=== PATIENT | female | born 1990 | race Caucasian/White ===

== ENCOUNTER 2018-11-12 00:23 | Emergency (ER) | payer SELFPAY ==
[~2018-11-12] VITALS: Ht 162.6 cm; Wt 62.2 kg
[~2018-11-12 00:23] MED LIST: AMOXIL500 MG OR; CIPROFLOXACN500 MG PO; LORTAB5 OR; ONDANSETRON4 MG PO; ORTHO TRI-CY PO; SEPTRA DS1 TAB OR; ZOFRAN ODT4 MG OR; ZOFRAN ODT4 MG PO; [UNRECOGNIZED DRUG - REMARK]
[2018-11-12] MEDS ORDERED: PRE-NATAL PO (00:35)
[2018-11-12 01:10] LABS: URINE BLOOD DIPSTICK NEGATIVE (NEGATIVE); URINE COLOR YELLOW; URINE GLUCOSE - DIPSTICK NEGATIVE (NEGATIVE); URINE KETONE >=80 mg/dL (NEGATIVE); URINE LEUK ESTERASE TRACE (Negative); URINE NITRITE - DIPSTICK NEGATIVE (Negative); URINE PROTEIN - DIPSTICK TRACE mg/dL (NEG-TRACE); URINE SPECIFIC GRAVITY >=1.030; URINE UROBILINOGEN - DIPSTICK 0.2 E.U./dL (0.2)
[2018-11-12 01:20] LABS: URINE BILIRUBIN - DIPSTICK NEGATIVE (NEGATIVE); URINE CLARITY TURBID
[2018-11-12 01:30] LABS: URINE BACTERIA FEW hpf; URINE MUCUS MANY hpf (NONE-FEW); URINE SQUAMOUS EPITHELIAL CELL FEW EPI/hpf (0-FEW)
[2018-11-12 03:00] VITALS: BP 126/65
== END 2018-11-12 03:00 | disposition home or self-care (01) | DRG 833 ==
LOC: ED 00:23
PROVIDERS: Emergency Medicine
DX: O21.9 Vomiting of pregnancy, unspecified (principal); Z3A.09 9 weeks gestation of pregnancy; R11.0 Nausea

== ENCOUNTER 2019-10-02 22:56 | Emergency (ER) | payer SELFPAY ==
[~2019-10-02] VITALS: Ht 162.6 cm; Wt 72.0 kg
[~2019-10-02 22:56] MED LIST changes: +PRE-NATAL PO
[2019-10-03 00:38] VITALS: BP 100/69
== END 2019-10-03 00:38 | disposition home or self-care (01) | DRG 395 ==
LOC: ED 22:56
DX: T18.128A Food in esophagus causing other injury, initial encounter (principal)
CPT/HCPCS: J1610

== ENCOUNTER 2020-09-01 23:25 | Emergency (ER) | payer SELFPAY ==
[~2020-09-01] VITALS: Ht 162.6 cm; Wt 62.0 kg
[2020-09-02 00:17] LABS: URINE BLOOD DIPSTICK LARGE (NEGATIVE); URINE COLOR YELLOW; URINE GLUCOSE - DIPSTICK NEGATIVE (NEGATIVE); URINE KETONE TRACE mg/dL (NEGATIVE); URINE NITRITE - DIPSTICK NEGATIVE (Negative); URINE PH 6.5 (4.5-8.0); URINE PROTEIN - DIPSTICK 30 mg/dL (NEG-TRACE); URINE UROBILINOGEN - DIPSTICK 0.2 E.U./dL (0.2)
[2020-09-02 00:32] LABS: URINE BILIRUBIN - DIPSTICK NEGATIVE (NEGATIVE); URINE LEUK ESTERASE SMALL (NEGATIVE)
[2020-09-02] MEDS ORDERED: BACTRIM DS1 TAB PO (00:47)
[2020-09-02 00:48] LABS: URINE RBC TNTC RBC/hpf (0-5)
[2020-09-02 00:49] LABS: URINE BACTERIA FEW hpf; URINE SQUAMOUS EPITHELIAL CELL FEW EPI/hpf (0-FEW)
[2020-09-02 01:07] VITALS: BP 122/72
[2020-09-02] MEDS ORDERED: ONDANSETRON ODT8 MG PO (22:35)
== END 2020-09-02 01:10 | disposition home or self-care (01) | DRG 690 ==
LOC: ED 23:25
PROVIDERS: Family Medicine
DX: N30.00 Acute cystitis without hematuria (principal); R11.0 Nausea

== ENCOUNTER 2020-09-02 22:06 | Emergency (ER) | payer SELFPAY ==
[~2020-09-02] VITALS: Ht 162.6 cm; Wt 62.3 kg
[~2020-09-02 22:06] MED LIST changes: +BACTRIM DS1 TAB PO
[2020-09-02] MEDS ORDERED: ONDANSETRON ODT8 MG PO (22:35)
[2020-09-02 23:16] VITALS: BP 111/77
== END 2020-09-02 23:16 | disposition home or self-care (01) | DRG 392 ==
LOC: ED 22:06
DX: R11.0 Nausea (principal)

== ENCOUNTER 2020-09-05 11:43 | Emergency (ER) | payer SELFPAY ==
[~2020-09-05] VITALS: Ht 162.6 cm; Wt 55.0 kg
[~2020-09-05 11:43] MED LIST changes: +ONDANSETRON ODT8 MG PO
[2020-09-05] MEDS ORDERED: KEFLEX500 M1 PO (12:15)
[2020-09-05 12:36] LABS: HEMATOCRIT 45.5 % (37.0-47.0); HEMOGLOBIN 16.2 g/dl (12.0-16.0); IMMATURE GRANULOCYTES 0.2 % (0.0-5.0); MEAN CELL VOLUME 91.7 fL CALC (80.0-100.0); MEAN CORPUSCULAR HGB 32.7 pG CALC (26.0-32.0); MEAN CORPUSCULAR HGB CONC 35.6 g/dL CAL (32.0-36.0); NEUT# 11.06 thou/uL (2.00-7.15); RED BLOOD COUNT 4.96 mill/uL (4.20-5.60); RED CELL DISTRI WIDTH 11.4 % (11.5-15.5)
[2020-09-05 13:14] LABS: ALBUMIN 4.7 g/dL (3.2-5.0); ALKALINE PHOSPHATASE 57 u/l (38-126); ANION GAP 20 (6-22 (CALC)); BILIRUBIN, TOTAL 1.2 mg/dL (0.0-1.4); BUN 12 mg/dL (7-17); BUN/CREATININE RATIO 15 (12-20 (CALC)); CARBON DIOXIDE 17 mmol/l (22-30); CHLORIDE 103 mmol/l (95-108); CREATININE 0.8 mg/dL (0.5-1.0); GFR > 60 ML/MIN (>=60 (CALC)); GFR FOR AFR.AMER. > 60 ML/MIN (>=60 (CALC)); POTASSIUM 4.1 mmol/l (3.5-5.1); SGOT/AST 27 u/l (14-36); SODIUM 136 mmol/l (137-146); TOTAL PROTEIN 7.9 g/dL (6.3-8.2)
[2020-09-05] MEDS ORDERED: REGLAN10 MG PO (13:52)
[2020-09-05 14:12] LABS: URINE BLOOD DIPSTICK TRACE-INTACT (NEGATIVE); URINE COLOR YELLOW; URINE GLUCOSE - DIPSTICK NEGATIVE (NEGATIVE); URINE KETONE >=80 mg/dL (NEGATIVE); URINE LEUK ESTERASE TRACE (NEGATIVE); URINE NITRITE - DIPSTICK NEGATIVE (Negative); URINE PROTEIN - DIPSTICK TRACE mg/dL (NEG-TRACE); URINE SPECIFIC GRAVITY >=1.030; URINE UROBILINOGEN - DIPSTICK 0.2 E.U./dL (0.2)
[2020-09-05 14:13] LABS: URINE BILIRUBIN - DIPSTICK NEGATIVE (NEGATIVE)
[2020-09-05 14:40] VITALS: BP 122/80
== END 2020-09-05 14:40 | disposition home or self-care (01) | DRG 392 ==
LOC: ED 11:43
DX: R11.2 Nausea with vomiting, unspecified (principal); T36.8X5A Adverse effect of other systemic antibiotics, initial encounter

== ENCOUNTER 2020-11-10 18:04 | Emergency (ER) | payer MEDICAID ==
[~2020-11-10] VITALS: Ht 162.6 cm; Wt 61.8 kg
[~2020-11-10 18:04] MED LIST changes: +KEFLEX500 M1 PO; +REGLAN10 MG PO
[2020-11-10 18:44] LABS: URINE BLOOD DIPSTICK TRACE-LYSED (NEGATIVE); URINE COLOR YELLOW; URINE GLUCOSE - DIPSTICK NEGATIVE (NEGATIVE); URINE KETONE >=80 mg/dL (NEGATIVE); URINE LEUK ESTERASE NEGATIVE (NEGATIVE); URINE NITRITE - DIPSTICK NEGATIVE (Negative); URINE PROTEIN - DIPSTICK TRACE mg/dL (NEG-TRACE); URINE SPECIFIC GRAVITY >=1.030; URINE UROBILINOGEN - DIPSTICK 0.2 E.U./dL (0.2)
[2020-11-10 18:45] LABS: URINE BILIRUBIN - DIPSTICK SMALL (NEGATIVE)
[2020-11-10 19:44] LABS: HEMATOCRIT 43.9 % (37.0-47.0); HEMOGLOBIN 15.1 g/dl (12.0-16.0); IMMATURE GRANULOCYTES 0.3 % (0.0-5.0); MEAN CELL VOLUME 94.2 fL CALC (80.0-100.0); MEAN CORPUSCULAR HGB 32.4 pG CALC (26.0-32.0); MEAN CORPUSCULAR HGB CONC 34.4 g/dL CAL (32.0-36.0); NEUT# 10.07 thou/uL (2.00-7.15); RED BLOOD COUNT 4.66 mill/uL (4.20-5.60); RED CELL DISTRI WIDTH 11.4 % (11.5-15.5)
[2020-11-10 19:48] LABS: ALBUMIN 4.7 g/dL (3.2-5.0); ALKALINE PHOSPHATASE 55 u/l (38-126); ANION GAP 17 (6-22 (CALC)); BUN 13 mg/dL (7-17); BUN/CREATININE RATIO 21 (12-20 (CALC)); CARBON DIOXIDE 19 mmol/l (22-30); CHLORIDE 106 mmol/l (95-108); CREATININE 0.6 mg/dL (0.5-1.0); GFR > 60 ML/MIN (>=60 (CALC)); GFR FOR AFR.AMER. > 60 ML/MIN (>=60 (CALC)); LIPASE 34 u/l (23-300); POTASSIUM 3.9 mmol/l (3.5-5.1); SGOT/AST 19 u/l (14-36); SODIUM 139 mmol/l (137-146)
[2020-11-10 19:50] LABS: BILIRUBIN, TOTAL 0.7 mg/dL (0.0-1.4)
[2020-11-10] MEDS ORDERED: PHENERGAN25 MG RE (20:03)
[2020-11-10 20:13] VITALS: BP 114/70
== END 2020-11-10 20:21 | disposition home or self-care (01) ==
LOC: ED 18:04
PROVIDERS: Family Medicine
DX: R11.2 Nausea with vomiting, unspecified (principal)

== ENCOUNTER 2021-01-14 23:11 | Emergency (ER) | payer MEDICAID ==
[~2021-01-14] VITALS: Ht 162.6 cm; Wt 60.0 kg
[~2021-01-14 23:11] MED LIST changes: +PHENERGAN25 MG RE
[2021-01-15 00:43] LABS: HEMATOCRIT 42.9 % (37.0-47.0); HEMOGLOBIN 14.7 g/dl (12.0-16.0); IMMATURE GRANULOCYTES 0.2 % (0.0-5.0); MEAN CELL VOLUME 93.7 fL CALC (80.0-100.0); MEAN CORPUSCULAR HGB 32.1 pG CALC (26.0-32.0); MEAN CORPUSCULAR HGB CONC 34.3 g/dL CAL (32.0-36.0); NEUT# 11.13 thou/uL (2.00-7.15); RED BLOOD COUNT 4.58 mill/uL (4.20-5.60); RED CELL DISTRI WIDTH 11.2 % (11.5-15.5)
[2021-01-15 00:50] LABS: ALBUMIN 5.2 g/dL (3.2-5.0); ALKALINE PHOSPHATASE 50 u/l (38-126); AMYLASE 109 u/l (30-110); ANION GAP 18 (6-22 (CALC)); BUN 15 mg/dL (7-17); BUN/CREATININE RATIO 23 (12-20 (CALC)); CARBON DIOXIDE 21 mmol/l (22-30); CHLORIDE 105 mmol/l (95-108); CREATININE 0.7 mg/dL (0.5-1.0); GFR > 60 ML/MIN (>=60 (CALC)); GFR FOR AFR.AMER. > 60 ML/MIN (>=60 (CALC)); POTASSIUM 3.8 mmol/l (3.5-5.1); SGOT/AST 23 u/l (14-36); SODIUM 140 mmol/l (137-146); TOTAL PROTEIN 8.4 g/dL (6.3-8.2)
[2021-01-15 00:52] LABS: BILIRUBIN, TOTAL 1.3 mg/dL (0.0-1.4)
[2021-01-15 02:03] LABS: URINE BLOOD DIPSTICK LARGE (NEGATIVE); URINE COLOR YELLOW; URINE GLUCOSE - DIPSTICK NEGATIVE (NEGATIVE); URINE KETONE >=80 mg/dL (NEGATIVE); URINE LEUK ESTERASE NEGATIVE (NEGATIVE); URINE PROTEIN - DIPSTICK 30 mg/dL (NEG-TRACE); URINE SPECIFIC GRAVITY 1.025
[2021-01-15 02:06] LABS: URINE BILIRUBIN - DIPSTICK SMALL (NEGATIVE)
[2021-01-15 02:07] LABS: URINE NITRITE - DIPSTICK NEGATIVE (Negative)
[2021-01-15 02:12] LABS: URINE BACTERIA MODERATE hpf; URINE EPITHELIAL CELLS MANY EPI/hpf (0-FEW)
[2021-01-15] MEDS ORDERED: PHENERGAN25 MG/TAB PO (02:22)
[2021-01-15 02:28] VITALS: BP 118/86
== END 2021-01-15 02:39 | disposition home or self-care (01) ==
LOC: ED 23:11
PROVIDERS: Emergency Medicine
DX: R11.2 Nausea with vomiting, unspecified (principal); D69.3 Immune thrombocytopenic purpura

== ENCOUNTER 2021-02-07 09:15 | Emergency (ER) | payer MEDICAID ==
[~2021-02-07] VITALS: Ht 162.6 cm; Wt 57.0 kg
[~2021-02-07 09:15] MED LIST changes: +PHENERGAN25 MG/TAB PO
[2021-02-07 09:37] LABS: HEMOGLOBIN 14.5 g/dl (12.0-16.0); IMMATURE GRANULOCYTES 0.3 % (0.0-5.0); MEAN CELL VOLUME 93.8 fL CALC (80.0-100.0); MEAN CORPUSCULAR HGB 32.4 pG CALC (26.0-32.0); MEAN CORPUSCULAR HGB CONC 34.5 g/dL CAL (32.0-36.0); NEUT# 10.11 thou/uL (2.00-7.15); RED BLOOD COUNT 4.48 mill/uL (4.20-5.60); RED CELL DISTRI WIDTH 11.5 % (11.5-15.5)
[2021-02-07 10:00] LABS: ALBUMIN 5.1 g/dL (3.2-5.0); ALKALINE PHOSPHATASE 51 u/l (38-126); AMYLASE 86 u/l (30-110); ANION GAP 17 (6-22 (CALC)); BILIRUBIN, TOTAL 1.7 mg/dL (0.0-1.4); BUN 15 mg/dL (7-17); BUN/CREATININE RATIO 23 (12-20 (CALC)); CARBON DIOXIDE 21 mmol/l (22-30); CHLORIDE 100 mmol/l (95-108); CREATININE 0.6 mg/dL (0.5-1.0); GFR > 60 ML/MIN (>=60 (CALC)); GFR FOR AFR.AMER. > 60 ML/MIN (>=60 (CALC)); LIPASE 67 u/l (23-300); POTASSIUM 3.4 mmol/l (3.5-5.1); SGOT/AST 22 u/l (14-36); SODIUM 135 mmol/l (137-146); TOTAL PROTEIN 8.4 g/dL (6.3-8.2)
[2021-02-07 11:03] LABS: URINE BLOOD DIPSTICK NEGATIVE (NEGATIVE); URINE COLOR YELLOW; URINE GLUCOSE - DIPSTICK NEGATIVE (NEGATIVE); URINE KETONE >=80 mg/dL (NEGATIVE); URINE LEUK ESTERASE NEGATIVE (NEGATIVE); URINE PROTEIN - DIPSTICK 30 mg/dL (NEG-TRACE); URINE SPECIFIC GRAVITY 1.025
[2021-02-07 11:09] LABS: URINE BILIRUBIN - DIPSTICK MODERATE (NEGATIVE)
[2021-02-07 11:10] LABS: URINE NITRITE - DIPSTICK NEGATIVE (Negative)
[2021-02-07 11:15] LABS: URINE SQUAMOUS EPITHELIAL CELL MODERATE EPI/hpf (0-FEW)
[2021-02-07] MEDS ORDERED: PROTONIX40 M2 PO (12:29)
[2021-02-07] MEDS ORDERED: PHENERGAN25 MG/TAB PO (12:29)
[2021-02-07 12:35] VITALS: BP 121/73
== END 2021-02-07 12:44 | disposition home or self-care (01) ==
LOC: ED 09:15
DX: R11.2 Nausea with vomiting, unspecified (principal); D69.3 Immune thrombocytopenic purpura

== ENCOUNTER 2021-02-26 | Emergency (ER) | payer MEDICAID ==
[~2021-02-26] MED LIST changes: +PROTONIX40 M2 PO
[2021-02-26 18:21] LABS: HEMATOCRIT 42.5 % (37.0-47.0); HEMOGLOBIN 14.6 g/dl (12.0-16.0); IMMATURE GRANULOCYTES 0.3 % (0.0-5.0); MEAN CELL VOLUME 95.3 fL CALC (80.0-100.0); MEAN CORPUSCULAR HGB 32.7 pG CALC (26.0-32.0); MEAN CORPUSCULAR HGB CONC 34.4 g/dL CAL (32.0-36.0); NEUT# 9.91 thou/uL (2.00-7.15); RED BLOOD COUNT 4.46 mill/uL (4.20-5.60); RED CELL DISTRI WIDTH 11.5 % (11.5-15.5)
[2021-02-26 18:33] LABS: ALBUMIN 4.9 g/dL (3.2-5.0); ALKALINE PHOSPHATASE 51 u/l (38-126); AMYLASE 53 u/l (30-110); BILIRUBIN, TOTAL 1.6 mg/dL (0.0-1.4); BUN 15 mg/dL (7-17); BUN/CREATININE RATIO 24 (12-20 (CALC)); CARBON DIOXIDE 19 mmol/l (22-30); CREATININE 0.6 mg/dL (0.5-1.0); GFR > 60 ML/MIN (>=60 (CALC)); GFR FOR AFR.AMER. > 60 ML/MIN (>=60 (CALC)); LIPASE 46 u/l (23-300); POTASSIUM 3.7 mmol/l (3.5-5.1); SGOT/AST 24 u/l (14-36); SODIUM 134 mmol/l (137-146); TOTAL PROTEIN 8.2 g/dL (6.3-8.2)
[2021-02-26 18:35] LABS: ANION GAP 17 (6-22 (CALC)); CHLORIDE 102 mmol/l (95-108)
[2021-02-26 18:48] LABS: URINE BLOOD DIPSTICK NEGATIVE (NEGATIVE); URINE GLUCOSE - DIPSTICK NEGATIVE (NEGATIVE); URINE KETONE >=80 mg/dL (NEGATIVE); URINE LEUK ESTERASE NEGATIVE (NEGATIVE); URINE PROTEIN - DIPSTICK TRACE mg/dL (NEG-TRACE); URINE SPECIFIC GRAVITY 1.025
[2021-02-26 18:51] LABS: URINE BILIRUBIN - DIPSTICK MODERATE (NEGATIVE); URINE COLOR DK. YELLOW; URINE NITRITE - DIPSTICK NEGATIVE (Negative)
[2021-02-26] MEDS ORDERED: PHENERGAN25 MG/TAB PO (19:14)
== END 2021-02-26 19:31 | disposition home or self-care (01) ==
DX: R11.2 Nausea with vomiting, unspecified (principal); D69.3 Immune thrombocytopenic purpura
CPT/HCPCS: S0164